=== PATIENT | female | born 1945 | race Caucasian/White ===

== ENCOUNTER → 2020-11-16 13:51 | Outpatient (CLI) | payer MEDICARE, SELFPAY ==
--- NOTE | 2020-11-16 13:57 | DI.MRI.S_ITS ---
PROCEDURE: MR LUMBAR SPINE WO CON INDICATIONS: Wedge compression fracture of unspecified lumbar v TECHNIQUE: Noncontrast sagittal T1 spin echo and T2 fast echo, sagittal STIR, axial T1 and T2 fast spin echo through the lumbar spine. In cases with scoliosis, additional coronal T2 fast spin echo may be performed. COMPARISON: None. FINDINGS: Image quality: Excellent. Alignment and Curvature: There is Grade I retrolithesis of L1 on L2 measuring 4 mm. Bone Marrow: Marrow is of normal overall signal. There is increased marrow signal at L2. There is 82% compression deformity at L1, 53% compression deformity at L2. Spinal Cord: Conus medullaris terminates at the L1-2 level. Visualized cord demonstrates normal signal and size. Paraspinous Soft Tissues: No paravertebral masses. Renal cysts are noted. Severe dessication is present at L4-5, moderate to severe throughout the remainder of the lumbar spine. L1-L2: Mild disc bulge without spinal stenosis. Minimal to mild right foraminal narrowing with facet and ligamentum flavum hypertrophy. L2-L3: Mild disc bulge with mild spinal stenosis. Moderate left and mild to moderate right foraminal narrowing with facet and ligamentum flavum hypertrophy. L3-L4: Mild disc bulge with mild spinal stenosis. Severe left foraminal narrowing with facet and ligamentum flavum hypertrophy. L4-L5: Mild disc bulge without spinal stenosis. Moderate right and mild left foraminal narrowing with facet and ligamentum flavum hypertrophy. L5-S1: Mild disc bulge without spinal stenosis. Minimal bilateral foraminal narrowing with facet and ligamentum flavum hypertrophy. IMPRESSION: 1. Multilevel degenerative changes. 2. Mild spinal stenosis secondary to disc bulge, as well as facet and ligamentum flavum hypertrophy, most notable at L2-3, L3-4. 3. Severe foraminal narrowing L3-4 secondary to facet/ligamentum flavum hypertrophy. 4. Subacute compression deformity at L2. Dictated by: Sonia Shetty M.D. on 11/16/2020 at 15:37 Approved by: Sonia Shetty M.D. on 11/16/2020 at 15:55
== END ==
PROVIDERS: PCP Internal Medicine; Referring Provider Physical Medicine & Rehabilitation Pain Medicine; Visit Provider Physical Medicine & Rehabilitation Pain Medicine
DX: S32.000A Wedge compression fracture of unspecified lumbar vertebra, initial encounter for closed fracture; M47.816 Spondylosis without myelopathy or radiculopathy, lumbar region; M48.061 Spinal stenosis, lumbar region without neurogenic claudication; M51.26 Other intervertebral disc displacement, lumbar region
CPT/HCPCS: 72148

== ENCOUNTER → 2021-01-29 08:06 | Outpatient (CLI) | payer MEDICARE, SELFPAY ==
[2021-01-29 12:00] LABS: COVID19 -Nasal RAPID Negative (Negative)
== END ==
PROVIDERS: PCP Internal Medicine; Referring Provider Physician Assistant; Visit Provider Physician Assistant
DX: Z01.812 Encounter for preprocedural laboratory examination (principal); Z20.822 Contact with and (suspected) exposure to COVID-19
CPT/HCPCS: 87635

== ENCOUNTER 2021-01-30 07:31 | Day surgery (SDC) | payer MEDICARE, SELFPAY ==
--- NOTE | 2021-01-30 | PATH_ITS ---
[facility] Accession Number: [id number] . 01 Material submitted: . PART A: colon - APPENDICIAL ORIFICE POLYP PART B: colon - RANDOM COLON BIOPSIES . 02 Diagnosis: A. Appendiceal Orifice Polyp: Serrated lesion, cannot completely exclude sessile serrated adenoma. . B. Random Colon Biopsies: Portions of colorectal mucosa x 2, one with a benign lymphoid aggregate and with no diagnostic abnormality. Negative for active, chronic, and microscopic colitis. Negative for dysplasia and malignancy. Additional levels through the block are noncontributory. MRV 02/02/2021 1513 Local . 02 Electronically signed: . Lashaun Polo MD, Pathologist NPI- [id number] . 01 Gross description: . A. Received in formalin, labeled appendiceal orifice polyp consists of a 0.4 x 0.3 x 0.2 cm lloyd fragment of soft tissue which is entirely submitted in cassette A1. B. Received in formalin, labeled random colon consists of two lloyd fragments of soft tissue measuring 0.3 x 0.2 x 0.2 cm in aggregate. The specimen is entirely submitted in cassette B1. ([id number]) . /MRV 01/31/2021 1233 Local . 02 Pathologist provided ICD-10: R19.7, D12.6, K63.5 . 02 CPT . 110575, 672334 Performed at: 01 [facility] [address], [place], [place] [id number] MD Pablo Bales MD Phone: [phone] [facility]formed at: [facility] [address] [place], [place] [id number] MD Jossie Milligan MD Phone: [phone]
[2021-01-30 07:56] VITALS: BP 147/87; PULSE 109; RESP 20; TEMP 36.7; O2SAT 100; BMI 30.9
[2021-01-30] MEDS: SODIUM CHLORIDE 0.9% 1,000 ML 84 ML IV (08:18)
--- NOTE | 2021-01-30 08:40 | P.HP_ITS ---
History of Present Illness History of Present Illness Date Patient Seen: 01/30/21 Time Patient Seen: 08:40 Chief complaint: SDC Narrative: I reviewed Dr. Evans note. No changes. Slight improvement with addition of nortriptyline Patient History Medical History C. difficile diarrhea Hypertension Multiple sclerosis Sleep apnea Surgical History H/O: hysterectomy Hx of appendectomy Total knee replacement status Family & Social History Social History: household members spouse Tobacco & Substance use: Smoking Status Never smoker alcohol intake never Substance Use Type marijuana Meds Home Medications and Allergies Home Medications Medication Instructions Recorded Confirmed Type amlodipine 2.5 mg tablet 2.5 mg PO DAILY 01/29/21 01/29/21 History nortriptyline 10 mg capsule 20 mg PO DAILY 01/29/21 01/29/21 History pramipexole 0.125 mg tablet 0.125 mg PO TID 01/29/21 01/29/21 History pyridostigmine bromide 60 mg tablet 60 mg PO TID 01/29/21 01/29/21 History Allergies Allergy/AdvReac Type Severity Reaction Status Date / Time Sulfa (Sulfonamide AdvReac Verified 01/30/21 07:55 Antibiotics) Review of Systems Review of Systems ROS: Yes All systems reviewed with the patient and are negative except as otherwise documented Exam Vital Signs (past 8 hours): - 01/30/21 07:56 Temperature 98.1 F Pulse Rate 109 H Respiratory Rate 20 Blood Pressure 147/87 H Pulse Oximetry 100 Oxygen Delivery Method Room Air Const General: cooperative and comfortable Orientation: alert [facility] Head: normocephalic Ears: external ears normal Nose: external nose normal Face and sinus: normal facial exam Eyes General: appearance normal, both eyes and all related structures Neck Neck: normal visual inspection Chest Chest: normal inspection of the chest Resp Effort & Inspection: normal respiratory effort Cardio Rate: regular rate GI Inspection: normal to inspection Skin General: no rashes or lesions noted and No jaundice Neuro General: patient alert and moves all extremities Cognition: normal cognition Speech: speech normal Extrem General: normal to inspection Psych Appearance: grossly normal Assessment & Plan Assessment & Plan narrative: Personal history of colon polyps. Diarrhea. Slight improvement with the addition of the tricyclic antidepressant colonoscopy is planned for today. Time Spent With Patient Critical Care time: I spent a total of [] minutes of critical care time on this patient's care today; this time is exclusive of procedural time.
--- NOTE | 2021-01-30 08:42 | PM.PREOP ---
Pre-operative Note COVID-19 COVID-19 status: Negative Result date/Date tested (Pos, Neg/Pending): 01/29/21 Interval Note History & Physical reviewed/Exam performed by Physician: Yes Changes to H&P: Yes ASA Class (for procedural sedation): II
--- NOTE | 2021-01-30 08:44 | SUR.OPER ---
GLASSES IN LABELED BAG TO PACU WITH PATIENT.
[2021-01-30 09:15] VITALS: BP 130/82; PULSE 90; RESP 18; TEMP 36.6; O2SAT 99
--- NOTE | 2021-01-30 09:15 | P.OP.COLON_ITS ---
Operative Date/Time/Diagnoses Date of procedure: 01/30/21 Time of procedure: 09:15 Pre-op diagnosis: Personal history of colon polyps. Diarrhea. Post-op diagnosis: same Procedure & Clinicians Study performed: Colonoscopy with biopsies and hot snare polypectomy Same procedure as scheduled: Yes Indications: Personal history of colon polyps. Diarrhea. Surgeon: Jaenmarie Oakes Procedure Notes SCOAP/Timeout: Done Procedure in detail: After the risks and benefits were explained, written and verbal informed consent was obtained. The patient was brought into the procedure room and placed into the left lateral decubitus position. Please see nurse wax machine operator notes for sedation details. Digital rectal examination was accomplished. The scope was introduced into the patient and advanced under direct visualization to the cecum as identified by the appendiceal orifice and ileocecal valve. The scope was slowly withdrawn to carefully examine the mucosa for any defects or lesions. Comprehensive imaging was accomplished throughout the rectum including the dentate line. The colon was decompressed, the scope was then removed from the patient who tolerated the procedure well. Pediatric colonoscope Bowel prep adequate Scope withdrawal time: 17 minutes Sedation minutes: 25 Complications: none Impression: Scattered diverticula were noted throughout the left colon. There were some classic hyperplastic appearing diminutive polyps that were left alone in the rectosigmoid region. The terminal ileum was interrogated and appeared visually normal. There is no evidence of macroscopic colitis. Random colon biopsies were taken for exclusion of microscopic disease. On the rim of the appendiceal orifice there was a sessile polyp that was a little difficult to access with the snare. We removed this piecemeal. Total polyp size was perhaps 8 mm in maximum dimension I noted a tattoo in the ascending colon without any surrounding recurrent polypoid structures. Endoscopic diagnosis 1. Diverticulosis 2. Colon polyp Post-procedure Plan for aftercare: 1. Await histopathology. 2. If adenomatous features are confirmed then because this was removed in piecemeal format early surveillance would be appropriate. Disposition: PACU
[2021-01-30 09:20] VITALS: BP 135/83; PULSE 88; RESP 17; O2SAT 99
--- NOTE | 2021-01-30 09:20 | SUR.PHASEI ---
Patient arrived at 09, however [facility] will not let me enter a time earlier than 916 in phase I
[2021-01-30 09:25] VITALS: BP 138/82; PULSE 102; RESP 21; O2SAT 99
[2021-01-30 09:30] VITALS: BP 144/91; PULSE 92; RESP 14; TEMP 36.6; O2SAT 99
[2021-01-30 09:38] VITALS: BP 147/92; PULSE 90; RESP 14; O2SAT 99
== END 2021-01-30 09:48 | disposition home or self-care (01) ==
PROVIDERS: PCP Internal Medicine; Referring Provider Internal Medicine Gastroenterology; Visit Provider Internal Medicine Gastroenterology
PROC: 0DJD8ZZ Inspection of Lower Intestinal Tract, Via Natural or Artificial Opening Endoscopic (ICD-10-PCS; CPT 45378; principal; 2021-01-30 08:30)
DX: D12.6 Benign neoplasm of colon, unspecified (principal); K57.30 Diverticulosis of large intestine without perforation or abscess without bleeding; Z86.010 Personal history of colon polyps; I10 Essential (primary) hypertension; G35 Multiple sclerosis; G47.30 Sleep apnea, unspecified
CPT/HCPCS: 45385; 45380; J2704

== ENCOUNTER 2022-06-25 14:30 | Outpatient (RCR) | payer MEDICARE, SELFPAY ==
--- NOTE | 2022-06-19 16:59 | ST.OP.ACL ---
Visit Care Team Role Provider Type Marilyn Lemon MD Family Provider Non-Staff Primary Care Provider Specialty: Medical Address: [address] [place] [address], [phone] Email: Adela House MD Attending Provider Non-Staff Referring Provider Specialty: Neurology Address: [address] [place] [address], [id number] Email: Adult Cognitive Linguistic Evaluation LINE MAINTAINER SECTION Adult Cognitive Linguistic Eval Start: 06/19/22 15:46 Freq: Status: Active Protocol: Document 06/19/22 15:46 ZS (Rec: 06/19/22 16:03 ZS [id number]) Adult Cognitive Linguistic Evaluation Session Time Visit Start Time 13:45 Visit Stop Time 14:20 Total Visit Minutes 35 Visit Information Visit Number Initial Evaluation Plan of Care Dates 06/19/2022 - 09/13/2022 Insurance Information Medicare Referral Referring Provider Dr. House Reason for Referral MS and worsening memory issues Setting Assessment Location Outpatient Care Visit Type Note Type Initial evaluation Next Note Type Next Note Type Treatment Note Patient Information Identification Type Name Patient History Yessenia is a 77-year-old female with a diagnosis of MS, which she received 25-30 years ago. Memory challenges started about 20 years ago and have worsened recently, particularly as it relates to remembering appointment days/ times, money management (e.g., counting change), and her mind going blank. 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 Son reported Yessenia will become frustrated when she loses a thought and that she cannot be interrupted mid- thought otherwise she will forget what she was saying. Yessenia described that her mind will just go blank and there is nothing she can do to get it back. She stated this has been the scariest part of MS for her. Language(s) Spoken in the Home [place] Education Level high school Occupation Status unemployed Hearing Hearing Level Normal Vision Vision Status Not Impaired Previous Therapy Previous Speech-Language Therapy No Subjective Patient Report Yessenia arrived on time accompanied by her son, who was present for the session. Mental Status Alert,Responsive,Cooperative Assessment Oral Motor Examination Completed No Formal Assessment Standardized Test/Screener Type Cognitive Linguistic Quick Test (CLQT) Administration Complete Results Results of the CLQT place Yessenia's attention, executive functions, visuospatial, and clock drawing skills WNL and her memory and language skills as mildly impaired. She missed points on her current address, though son reported she had moved about a month prior. Pt reviewed written directions while completing clock drawing task and completed this task mostly correctly, with the exception of mixing up the long and short hand on the clock. She predicted poor performance on story retell and exhibited difficulty recalling details, though main points of the story were accurately recalled . Difficulty noted with symbol trails task, as pt did not alternate shapes consistently and missed shapes while completing task. She identified initial error, attempted to correct and then got confused. LINE MAINTAINER SECTION provided a different colored pen and Yessenia completed task with new color to reduce confusion with prior lines. Errors still present with new color, though errors made changed with each attempt. Yessenia started with several words on generative naming task and then stated her mind went blank after about 30 seconds for each task . Similar difficulty noted with design generation task, with her mind going blank mid-drawing of a shape. Attempted removing task from sight and discussing something else, which Yessenia reported would not help. High level of success noted for design generation, with one error noted on final trial. Difficulty observed on second maze task with line moving through final wall as well as several instances of line curving into end area as she rounded corners. Recommend speech therapy to provide external strategies for improved memory, especially as it relates to medication management and medical care (e .g., tracking appointments). Prognosis Based on Cognitive status,Comorbidities ,Duration of symptoms/severity ,Time since onset Plan of Care Speech-Language Treatment Yes Frequency 1x per week Duration 45 minutes Patient/Caregiver Education Patient expressed understanding of evaluation, Patient expressed agreement with goals and treatment plans ,Family/caregivers expressed understanding of evaluation, Family/caregivers expressed agreement with goals and treatment plan,Patient requires further education/ training,Family/caregivers require further education/ training Short Term Goals 1. Yessenia will use external memory strategies (e.g., calendar, timers, etc.) to improve recall of appointments and daily activities given printed resources and verbal reminders. 2. Family and pt will participate in education regarding strategies for memory as MS progresses. Longterm Goals Yessenia will demonstrate use of external memory strategies (e. g., calendar, timers, etc.) across 2-3 environments to improve completion of ADLs, as reported by pt and caregivers and observed by LINE MAINTAINER SECTION.
--- NOTE | 2022-06-19 16:59 | ST.OPPOC ---
Physical, Occupational & Speech Therapy At [facility] Visit Care Team Role Provider Type Marilyn Lemon MD Family Provider Non-Staff Primary Care Provider Address: [address] [place] [address], [phone] Adela House MD Attending Provider Non-Staff Referring Provider Address: [address] [place] [address], [phone] Speech Pathology Plan of Care Plan of Care Dates 06/19/2022 - 09/13/[address] House Patient History eYssenia is a 77-year-old female with a diagnosis of MS, which she received 25-30 years ago. Memory challenges started about 20 years ago and have worsened recently, particularly as it relates to remembering appointment days/times, money management (e.g., counting change), and her mind going blank. 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 Son reported Yessenia will become frustrated when she loses a thought and that she cannot be interrupted mid- thought otherwise she will forget what she was saying. Yessenia described that her mind will just go blank and there is nothing she can do to get it back. She stated this has been the scariest part of MS for her. Short Term Goals 1. Yessenia will use external memory strategies (e. g., calendar, timers, etc.) to improve recall of appointments and daily activities given printed resources and verbal reminders. 2. Family and pt will participate in education regarding strategies for memory as MS progresses . Transitional Care Manager Goals Yessenia will demonstrate use of external memory strategies (e.g., calendar, timers, etc.) across 2-3 environments to improve completion of ADLs, as reported by pt and caregivers and observed by RETAIL WORKER. Comment: Electronically Signed by: IFEANYI Martinez 06/19/22 8026 If you are in agreement with this Plan of Care, please return a signed and dated copy. I have reviewed this Plan of Care and certify that the skilled therapy services above are required to meet the patient?s needs. Physician Signature Date Printed Name and Credentials Clinical Instructor Signature Printed Name and Credentials
--- NOTE | 2022-06-25 16:24 | ST.OPTN ---
Visit Care Team Role Provider Type Marilyn Lemon MD Family Provider Non-Staff Primary Care Provider Address: [address] [place] [address], [phone] Adela House MD Attending Provider Non-Staff Referring Provider Address: [place], [address] CHIP PERSON Treatment Note CHIP PERSON Treatment Note Start: 06/25/22 15:23 Freq: Status: Active Protocol: Document 06/25/22 15:23 ZS (Rec: 06/25/22 15:30 ZS [id number]) Speech Pathology Treatment Note Session Time Visit Start Time 14:30 Visit Stop Time 15:15 Total Visit Minutes 45 Visit Information Visit Number 1 Plan of Care Dates 06/19/2022 - 09/13/2022 Insurance Information Medicare Setting Treatment Setting Outpatient Care Visit Type Note Type Treatment Note Next Note Type Next Note Type Treatment Note General Information Patient History Yessenia is a 77-year-old female with a diagnosis of MS, which she received 25-30 years ago. Memory challenges started about 20 years ago and have worsened recently, particularly as it relates to remembering appointment days/ times, money management (e.g., counting change), and her mind going blank. 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 Son reported Yessenia will become frustrated when she loses a thought and that she cannot be interrupted mid- thought otherwise she will forget what she was saying. Yessenia described that her mind will just go blank and there is nothing she can do to get it back. She stated this has been the scariest part of MS for her. Results of the CLQT place Yessenia's attention, executive functions, visuospatial, and clock drawing skills WNL and her memory and language skills as mildly impaired. She missed points on her current address, though son reported she had moved about a month prior. Pt reviewed written directions while completing clock drawing task and completed this task mostly correctly, with the exception of mixing up the long and short hand on the clock. She predicted poor performance on story retell and exhibited difficulty recalling details, though main points of the story were accurately recalled . Difficulty noted with symbol trails task, as pt did not alternate shapes consistently and missed shapes while completing task. She identified initial error, attempted to correct and then got confused. CHIP PERSON provided a different colored pen and Yessenia completed task with new color to reduce confusion with prior lines. Errors still present with new color, though errors made changed with each attempt. Yessenia started with several words on generative naming task and then stated her mind went blank after about 30 seconds for each task . Similar difficulty noted with design generation task, with her mind going blank mid-drawing of a shape. Attempted removing task from sight and discussing something else, which Yessenia reported would not help. High level of success noted for design generation, with one error noted on final trial. Difficulty observed on second maze task with line moving through final wall as well as several instances of line curving into end area as she rounded corners. Recommend speech therapy to provide external strategies for improved memory, especially as it relates to medication management and medical care (e .g., tracking appointments). Subjective Identification Type Name Identification Reconciled With Medical Record Others Present Family Observations/Patient Presentation Yessenia arrived on time accompanied by her son, who was present for the session. Chief Complaint(s) Cognitive Objective Short Term Goals 1. Yessenia will use external memory strategies (e.g., calendar, timers, etc.) to improve recall of appointments and daily activities given printed resources and verbal reminders. 2. Family and pt will participate in education regarding strategies for memory as MS progresses. Mud Grinder Goals Yessenia will demonstrate use of external memory strategies (e. g., calendar, timers, etc.) across 2-3 environments to improve completion of ADLs, as reported by pt and caregivers and observed by CHIP PERSON. Treatment Activities Reviewed results of CLQT and provided education regarding cognitive domains. Discussed external strategies: calendar, memory notebook, alarms and implementation of routines now given progressive diagnosis. Discussed stress management techniques and having more kelvin/patience with self in moments of forgetfulness. Assessment Assessment of Improvement Yessenia reported frustration with calling the wrong person on the phone, though son reminded her this occurred while she was on several pain medications and is not a recurring problem. Discussed use of calendar for recalling appointment times/dates/ locations. Yessenia reported she has a large wall calendar that is placed in a central location at home with color- coding to differentiate between individuals' schedules . She added she has a pocket/ purse case planner though sometimes forgets to compare the two. Yessenia stated she often does not put enough information on the calendar and does not know what the appointment is for or where it is. Discussed putting type of appointment, location, time, phone number, and notes on calendar to reduce confusion. Yessenia expressed agreement and understanding. Discussed increased patience and kelvin with herself to reduce stress around memory errors, as son mentioned this can worsen memory. Reviewed with Patient Goals,Progress Being Made,Home Exercise Program Patient/Caregiver Understanding Excellent Plan Amount of Therapy Recommended 4 Months Frequency of Treatment Once a Week Length of Session 45 Minutes Therapeutic Contents Cognitive-Linguistic Training, Home Exercise Program Provided Patient/Caregiver Instruction Home Exercise Program,Plan of Care,Questions/Concerns Therapy Recommendations Continue with Current Program
--- NOTE | 2022-08-05 15:24 | ST.OPDS ---
Visit Care Team Role Provider Type Marilyn Lemon MD Family Provider Non-Staff Primary Care Provider Address: [address] [place] [address], [id number] Adela House MD Attending Provider Non-Staff Referring Provider Address: [place], [address] [employer]ARM [employer]ODUCT [employer]CH[employer]ER Treatment Note FARM [employer]ODUCT PURCH[employer]ER Treatment Note Start: 06/25/22 15:23 Freq: Status: Active Protocol: Document 08/05/22 15:22 ZS (Rec: 08/05/22 15:24 ZS [id number]) Speech Pathology Treatment Note Visit Information Plan of Care Dates 06/19/2022 - 09/13/2022 Insurance Information Medicare Setting Treatment Setting Outpatient Care Visit Type Note Type Discharge Summary General Information Patient History Yessenia is a 77-year-old female with a diagnosis of MS, which she received 25-30 years ago. Memory challenges started about 20 years ago and have worsened recently, particularly as it relates to remembering appointment days/ times, money management (e.g., counting change), and her mind going blank. 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 Son reported Yessenia will become frustrated when she loses a thought and that she cannot be interrupted mid- thought otherwise she will forget what she was saying. Yessenia described that her mind will just go blank and there is nothing she can do to get it back. She stated this has been the scariest part of MS for her. Results of the CLQT place Yessenia's attention, executive functions, visuospatial, and clock drawing skills WNL and her memory and language skills as mildly impaired. She missed points on her current address, though son reported she had moved about a month prior. Pt reviewed written directions while completing clock drawing task and completed this task mostly correctly, with the exception of mixing up the long and short hand on the clock. She predicted poor performance on story retell and exhibited difficulty recalling details, though main points of the story were accurately recalled . Difficulty noted with symbol trails task, as pt did not alternate shapes consistently and missed shapes while completing task. She identified initial error, attempted to correct and then got confused. FARM PRODUCT PURCHASER provided a different colored pen and Yessenia completed task with new color to reduce confusion with prior lines. Errors still present with new color, though errors made changed with each attempt. Yessenia started with several words on generative naming task and then stated her mind went blank after about 30 seconds for each task . Similar difficulty noted with design generation task, with her mind going blank mid-drawing of a shape. Attempted removing task from sight and discussing something else, which Yessenia reported would not help. High level of success noted for design generation, with one error noted on final trial. Difficulty observed on second maze task with line moving through final wall as well as several instances of line curving into end area as she rounded corners. Recommend speech therapy to provide external strategies for improved memory, especially as it relates to medication management and medical care (e .g., tracking appointments). Objective Short Term Goals 1. Yessenia will use external memory strategies (e.g., calendar, timers, etc.) to improve recall of appointments and daily activities given printed resources and verbal reminders. 2. Family and pt will participate in education regarding strategies for memory as MS progresses. Division Operations Specialist Goals Yessenia will demonstrate use of external memory strategies (e. g., calendar, timers, etc.) across 2-3 environments to improve completion of ADLs, as reported by pt and caregivers and observed by FARM PRODUCT PURCHASER. Treatment Activities Discharging from speech therapy as does not have staff to accommodate pt on caseload at this time. Pt will be placed on a wait list and contacted when has staff to accommodate pt on schedule. Plan Provided Patient/Caregiver Instruction Plan of Care,Questions/ Concerns Therapy Recommendations Discharge from Speech Therapy Reason for Discharge does not have staff to accommodate pt on schedule.
== END 2022-08-09 15:04 ==
LOC: SP 14:30
PROVIDERS: Family Provider Internal Medicine; PCP Internal Medicine; Referring Provider Psychiatry & Neurology Neurology; Visit Provider Psychiatry & Neurology Neurology
DX: R41.3 Other amnesia (principal); G35 Multiple sclerosis
CPT/HCPCS: 96125; 97129; 97130

== ENCOUNTER 2022-09-18 07:48 | Day surgery (SDC) | payer MEDICARE, SELFPAY ==
--- NOTE | 2022-09-18 | PATH_ITS ---
[facility] Accession Number: [id number] No. of containers..01 Tissue . 01 Material submitted: . colon - APPENDICELE ORRIFICE POLYP . 01 Diagnosis: Appendiceal Orifice, Polypectomy: Sessile serrated adenoma. MRV 09/24/2022 1809 Local . 01 Electronically signed: . Jossie Milligan MD, Pathologist NPI- [id number] . 01 Gross description: . The specimen is received in formalin labeled with the patient's name, , and appendiceal orifice polyp, and consists of multiple lloyd soft tissue fragments aggregating to 0.6 x 0.4 x 0.1 cm. The specimen is filtered and submitted entirely in cassette A1. ([id number]) /FRR 09/21/2022 1410 Local . 01 Pathologist provided ICD-10: D12.1 . 01 CPT . 346530 Specimen Comment: A courtesy copy of this report has been sent to [phone] Performed at: [address] [facility] [address] [place] [address], [place], [place] [id number] MD Pablo Bales MD Phone: [phone]
[2022-09-18] MEDS: LACTATED RINGERS 1,000 ML 42 ML IV (08:04)
--- NOTE | 2022-09-18 08:13 | PM.HP.1 ---
History of Present Illness History of Present Illness Date Patient Seen: 09/18/22 Time Patient Seen: 08:13 Chief complaint: Colonoscopy Narrative: Since chatting in clinic, bowels have normalized. She is here for polyp surveillance. [facility] Medical History C. difficile diarrhea Hypertension Multiple sclerosis Sleep apnea Surgical History H/O: hysterectomy Hx of appendectomy Total knee replacement status Social History household members: spouse Smoking Status: Never smoker alcohol intake: never Meds Home Medications and Allergies Home Medications Medication Instructions Recorded Confirmed Type amlodipine 2.5 mg tablet 2.5 mg PO DAILY 01/29/21 01/29/21 History nortriptyline 10 mg capsule 20 mg PO DAILY 01/29/21 01/29/21 History pramipexole 0.125 mg tablet 0.125 mg PO TID 01/29/21 01/29/21 History pyridostigmine bromide 60 mg tablet 60 mg PO TID 01/29/21 01/29/21 History Allergies Allergy/AdvReac Type Severity Reaction Status Date / Time Sulfa (Sulfonamide AdvReac Verified 09/18/22 08:09 Antibiotics) Review of Systems Review of Systems ROS: Yes All systems reviewed with the patient and are negative except as otherwise documented Exam Const General: cooperative HENMT Head: normal to inspection Eyes General: appearance normal, both eyes and all related structures Neck Neck: normal visual inspection Chest Chest: normal inspection of the chest Resp Effort & Inspection: normal respiratory effort Cardio Rate: regular rate GI Inspection: normal to inspection Skin General: no rashes or lesions noted Neuro General: patient alert and patient awake Extrem General: normal to inspection and no pedal edema Psych Appearance: grossly normal Assessment & Plan Assessment & Plan narrative: 77-year-old female with an adenomatous colon polyp removed from the region of the appendiceal orifice. She is overdue for surveillance. Colonoscopy is pursued today.
--- NOTE | 2022-09-18 08:15 | PM.PREOP ---
Pre-operative Note Interval Note History & Physical reviewed/Exam performed by Physician: Yes Changes to H&P: No ASA Class (for procedural sedation): II
[2022-09-18 08:17] VITALS: BP 138/88; PULSE 104; RESP 18; TEMP 37; O2SAT 95; BMI 30.1
--- NOTE | 2022-09-18 09:14 | P.OP.COLON_ITS ---
Operative Date/Time/Diagnoses Date of procedure: 09/18/22 Time of procedure: 09:14 Pre-op diagnosis: Appendiceal orifice adenoma Post-op diagnosis: same Procedure & Clinicians Study performed: Colonoscopy with cold snare cold biopsy polypectomy Same procedure as scheduled: Yes Indications: Appendiceal orifice adenoma Surgeon: Jeanmarie Oakes Procedure Notes SCOAP/Timeout: Done Procedure in detail: After the risks and benefits were explained, written and verbal informed consent was obtained. The patient was brought into the procedure room and placed into the left lateral decubitus position. Please see anesthesia notes for sedation details. Digital rectal examination was accomplished. The scope was introduced into the patient and advanced under direct visualization to the cecum as identified by the appendiceal orifice and ileocecal valve. The scope was slowly withdrawn to carefully examine the mucosa for any defects or lesions. Comprehensive imaging was accomplished throughout the rectum including the d entate line. The colon was decompressed, the scope was then removed from the patient who tolerated the procedure well. Pediatric colonoscope Bowel prep adequate Scope withdrawal time: 16 minutes Sedation minutes: 26 Complications: none Impression: Patient had grade 1 to grade 2 internal hemorrhoids. Diverticulosis was encountered in the sigmoid. On initial inspection of the appendiceal orifice I did not see any obvious polyp but then was concerned about an approximately 7 mm subtle area within the orifice that could have represented residual polyps so this was attempted to be removed with hot snare. Ultimately the snare came through before any cautery was applied. There was no significant bleeding. Two other locations immediately adjacent the snared section were trimmed off with cold forceps. No additional significant pathology was appreciated throughout. Endoscopic diagnosis 1. Diverticulosis 2. Grade 2 hemorrhoids 3. Possible residual appendiceal orifice polyp Post-procedure Plan for aftercare: Await histology to determine an appropriate surveillance interval. Disposition: PACU
[2022-09-18 09:17] VITALS: BP 87/47; PULSE 93; RESP 12; TEMP 36.1; O2SAT 95
[2022-09-18 09:22] VITALS: BP 90/51; PULSE 95; RESP 11; O2SAT 97
[2022-09-18 09:27] VITALS: BP 116/78; PULSE 94; RESP 19; TEMP 36.4; O2SAT 97
[2022-09-18 09:28] VITALS: BP 118/78; PULSE 94; RESP 20; O2SAT 96
== END 2022-09-18 09:52 | disposition home or self-care (01) ==
PROVIDERS: Family Provider Internal Medicine; PCP Internal Medicine; Referring Provider Internal Medicine Gastroenterology; Visit Provider Internal Medicine Gastroenterology
PROC: 0DJD8ZZ Inspection of Lower Intestinal Tract, Via Natural or Artificial Opening Endoscopic (ICD-10-PCS; CPT 45378; principal; 2022-09-18 09:00)
DX: Z12.11 Encounter for screening for malignant neoplasm of colon (principal); Z86.010 Personal history of colon polyps; K57.30 Diverticulosis of large intestine without perforation or abscess without bleeding; K64.1 Second degree hemorrhoids; D12.1 Benign neoplasm of appendix
CPT/HCPCS: 45385; 45380; J2704

== ENCOUNTER 2023-02-24 07:32 | Day surgery (SDC) | payer MEDICARE, SELFPAY ==
[2023-02-24] VITALS (7 sets, daily range): BP systolic 95–141; BP diastolic 50–76; PULSE 61–83; RESP 12–26; TEMP 36.4; O2SAT 94–97
--- NOTE | 2023-02-24 | PATH_ITS ---
[facility] Accession Number: [id number] No. of containers..01 Tissue . 01 Material submitted: . sigmoid colon - SIGMOID . 01 Diagnosis: Sigmoid Colon, Biopsy: Hyperplastic polyp. [facility] 03/05/2023 1101 Local . 01 Electronically signed: . Vinod Dinh MD, PhD, Pathologist NPI- [id number] . 01 Gross description: . SIGMOID: Received in formalin is 1 fragment(s) of lloyd, soft tissue measuring 0.3 x 0.1 x 0.1 cm submitted entirely in 1 cassette(s) /AAY 02/25/2023 0532 Local . 01 Pathologist provided ICD-10: K63.5 . 01 CPT . 676263 Specimen Comment: A courtesy copy of this report has been sent to [phone] Performed at: 01 [facility] [address] [place] [address], [place], [place] [id number] MD Pablo Bales MD Phone: [phone]
[2023-02-24] MEDS: LACTATED RINGERS 1,000 ML 42 ML IV (08:35)
--- NOTE | 2023-02-24 08:56 | PM.HP.1 ---
History of Present Illness History of Present Illness Date Patient Seen: 02/24/23 Chief complaint: Colonoscopy Narrative: Surveillance colonoscopy for previous history of sessile serrated adenoma at the appendiceal orifice [facility] Medical History C. difficile diarrhea Hypertension Multiple sclerosis Sleep apnea Surgical History H/O: hysterectomy Hx of appendectomy Total knee replacement status Social History household members: spouse Smoking Status: Former smoker alcohol intake: never Meds Home Medications and Allergies Home Medications Medication Instructions Recorded Confirmed Type pyridostigmine bromide 60 mg 60 mg PO TID 01/29/21 02/24/23 History tablet (Mestinon) sumatriptan 50 mg tablet and 1 ea PO DAILY PRN Migraine Headache 09/18/22 02/24/23 History menthol 10 %-camphor 4 % topical gel citalopram 20 mg tablet 20 mg PO DAILY 02/24/23 02/24/23 History gabapentin 300 mg capsule 300 mg PO DAILY 02/24/23 02/24/23 History ginkgo biloba 40 mg tablet 40 mg PO DAILY 02/24/23 02/24/23 History glucosamine sulfate 500 mg tablet 500 mg PO DAILY 02/24/23 02/24/23 History (Glucosamine) magnesium chloride 64 mg 64 mg PO BEDTIME 02/24/23 02/24/23 History (magnesium chloride) tablet,delayed release memantine 10 mg tablet (Namenda) 10 mg PO BID 02/24/23 02/24/23 History omega 0-rqy-dwk-fish oil 60 mg-90 1 cap PO DAILY 02/24/23 02/24/23 History mg-500 mg capsule (Fish Oil) Allergies Allergy/AdvReac Type Severity Reaction Status Date / Time Sulfa (Sulfonamide AdvReac Verified 02/24/23 08:08 Antibiotics) Exam Vital Signs (past 8 hours): - 02/24/23 08:28 Temperature 97.5 F L Pulse Rate 83 Respiratory Rate 19 Blood Pressure 133/76 Pulse Oximetry 95 Oxygen Delivery Method Room Air Oxygen Delivery Method Room Air Narrative Exam Narrative: Oropharynx free of lesions Chest clear to auscultation percussion Cardiac exam reveals no S3 or murmur Assessment & Plan Assessment & Plan narrative: History of adenomatous colon polyps need for follow-up colonoscopy. Risks, benefits, alternatives have been explained.
--- NOTE | 2023-02-24 08:57 | PM.OP.COLON ---
Operative Date/Time/Diagnoses Date of procedure: 02/24/23 Pre-op diagnosis: See indication and findings Procedure & Clinicians Study performed: Colonoscopy Indications: History of adenomatous polyp at the appendiceal orifice Surgeon: Davon Evans Procedure Notes Procedure in detail: After informed consent was obtained the patient was placed in left lateral decubitus position. The video colonoscope was placed in the rectum slowly advanced cecum. Preparation was good. On slow withdrawal mucosa was carefully examined. The scope was removed. The patient tolerated procedure well. Blood loss none Complications none Sedation mac Findings 1. Completely normal appendiceal orifice. Photographs taken 2. Two sites of previous tattoo in mid ascending colon Clear polyp 3. 3 mm polyp in the sigmoid colon Jumbo biopsy removed completely 4. Myad-sg-acpmacoi sigmoid diverticulosis 5. Otherwise negative colonoscopy to cecum Yessenia should have follow-up colonoscopy in 3-5 years
== END 2023-02-24 10:06 | disposition home or self-care (01) ==
PROVIDERS: Family Provider Internal Medicine; PCP Internal Medicine; Referring Provider Internal Medicine Gastroenterology; Visit Provider Internal Medicine Gastroenterology
PROC: 0DJD8ZZ Inspection of Lower Intestinal Tract, Via Natural or Artificial Opening Endoscopic (ICD-10-PCS; CPT 45378; principal; 2023-02-24 09:00)
DX: Z12.11 Encounter for screening for malignant neoplasm of colon (principal); Z86.010 Personal history of colon polyps; K57.30 Diverticulosis of large intestine without perforation or abscess without bleeding; K63.5 Polyp of colon
CPT/HCPCS: 45380

== ENCOUNTER → 2024-08-14 15:17 | Outpatient (CLI) | payer MEDICARE, SELFPAY ==
--- NOTE | 2024-08-14 15:19 | DI.MRI.S_ITS ---
PROCEDURE: MR CERVICAL SPINE WO CON INDICATIONS: imbalance, spinal stenosis TECHNIQUE: Noncontrast sagittal T1 spin echo and T2 fast spin echo, sagittal STIR, foraminal oblique sagittal T2 fast spin echo, and axial gradient echo or T2 fast spin echo through the cervical spine. COMPARISON: [facility] Outside Film, CT, CT CERVICAL SPINE WITHOUT CONTRAST, 05/27/2022, 16:45. FINDINGS: Image quality: Diagnostic, with note made of motion artifact. Alignment and Curvature: There is overall straightening of the normal cervical lordosis. No focal AP alignment abnormality is seen. Bone Marrow: Marrow demonstrates normal overall signal. Spinal Cord: Visualized spinal cord has normal size and signal. No cerebellar tonsillar herniation. Paraspinous Soft Tissues: No paravertebral masses. Prevertebral soft tissues are normal in thickness. C2-C3: No significant abnormality is seen. C3-C4: Mild loss of disc height is seen. Loss of disc signal is seen. Bridging endplate osteophytes are seen. Moderate generalized disc osteophyte complex is seen. There is a superimposed central disc osteophyte protrusion. Uncovertebral joint hypertrophy is seen at this level. Mild facet joint hypertrophy is seen. There is at least moderate bilateral neural foraminal narrowing seen. Moderate central canal narrowing is seen. There is associated mass effect upon the ventral spinal cord. C4-C5: Moderate loss of disc height is seen. Loss of disc signal is seen. Reactive marrow endplate changes are seen, which are hyperintense on T1-weighted and T2-weighted imaging and most consistent with fatty metaplasia (Modic type II changes). Moderate disc osteophyte complex is seen, with a central/right disc osteophyte protrusion. Uncovertebral joint hypertrophy is seen at this level. Mild facet joint hypertrophy is seen. There is moderate to severe right-sided and at least moderate left-sided neural foraminal narrowing. Moderate central canal narrowing is seen. There is associated mass effect upon the ventral spinal cord. C5-C6: Phds-jv-tbxlmwif loss of disc height and disc signal can be seen. At least moderate disc osteophyte complex is seen. There is a central/right disc osteophyte protrusion. Uncovertebral joint hypertrophy is seen at this level. There is at least moderate bilateral neural foraminal narrowing, right worse than left. Moderate central canal narrowing is seen. There is associated mass effect upon the ventral spinal cord. C6-C7: Mild to moderate loss of disc height is seen. Loss of disc signal is seen. Moderate generalized disc osteophyte complex is seen. There is a superimposed central disc osteophyte protrusion. Mild facet joint hypertrophy is seen. Moderate to severe bilateral neural foraminal narrowing can be seen. Moderate central canal narrowing is seen. There is associated mass effect upon the ventral spinal cord. C7-T1: The disc height is well-preserved. Loss of disc signal is seen at this level. A mild degree of generalized disc osteophyte complex is seen. Mild facet joint hypertrophy is seen. There is moderate left-sided and no right-sided neural foraminal narrowing. No central canal narrowing is seen. IMPRESSION: Multiple levels of significant cervical spine degenerative change can be seen. Dictated by: Mc Rai M.D. on 08/16/2024 at 12:10 Approved by: Mc Rai M.D. on 08/16/2024 at 12:14
== END ==
PROVIDERS: Family Provider Internal Medicine; Referring Provider Registered Nurse; Visit Provider Registered Nurse
DX: M48.02 Spinal stenosis, cervical region (principal); M48.03 Spinal stenosis, cervicothoracic region; M50.21 Other cervical disc displacement, high cervical region; M47.813 Spondylosis without myelopathy or radiculopathy, cervicothoracic region; M47.812 Spondylosis without myelopathy or radiculopathy, cervical region; M25.78 Osteophyte, vertebrae; R26.89 Other abnormalities of gait and mobility; G35 Multiple sclerosis; G25.0 Essential tremor; R42 Dizziness and giddiness
CPT/HCPCS: 72141

== ENCOUNTER → 2025-01-07 08:23 | Outpatient (CLI) | payer MEDICARE, SELFPAY ==
--- NOTE | 2025-01-07 08:27 | DI.CT.S_ITS ---
PROCEDURE: CT ANGIO ABDOMEN PELVIS INDICATIONS: AAA TECHNIQUE: After the administration of intravenous contrast, 2.5 mm thick sections acquired from the diaphragm to the symphysis. 10 mm maximum-intensity projection (MIP) reformats were then acquired. For radiation dose reduction, the following was used: automated exposure control. COMPARISON: None. FINDINGS: Image Quality: Diagnostic. Abdominal aorta: Saccular infrarenal abdominal aortic aneurysm off the anterior wall, with aneurysm sac measuring 2.3 x 1.3 x 2.2 cm (, ). The maximal diameter of the aorta at this level measures 3.0 cm. No prior exams are available for comparison at this time. Mesenteric arteries: Patent without hemodynamically significant stenosis. Renal arteries: Patent without hemodynamically significant stenosis. OTHER: Lower Chest: No significant findings. Liver: No solid mass. Gallbladder: No radiopaque gallstones or wall thickening. Biliary ducts: No biliary dilation. Pancreas: No ductal dilation. Spleen: Size is within normal limits. Adrenal Glands: No adrenal nodules. Kidneys and Ureters: No hydronephrosis. No solid mass. No complex renal cystic lesion which requires follow up. Stomach and Bowel: Normal colonic caliber, without significant wall thickening. Peritoneum: No abnormal intraperitoneal fluid. No free air. Ventral Wall: No hernia. Abdominal Nodes: No retroperitoneal or mesenteric adenopathy by size criteria. Vessels: Aorta and inferior vena cava are normal in size. PELVIS: Pelvic Organs: Status post hysterectomy. Bladder: Unremarkable. Pelvic Nodes: No enlarged lymph nodes. Miscellaneous: No inguinal hernias are seen. Pelvic nerve stimulators present with battery pack in the right lower back soft tissues. Bones: No aggressive osseous abnormality. Multilevel degenerative changes of the visualized spine with mild to moderate chronic appearing compression deformities involving the L1 through L3 vertebral bodies. IMPRESSION: Saccular infrarenal abdominal aortic aneurysm, with aneurysm sac measuring 2.3 x 1.3 x 2.2 cm. No prior exams are available for comparison at this time. Dictated by: Sandeep Sykes M.D. on 01/09/2025 at 14:11 Approved by: Sandeep Sykes M.D. on 01/09/2025 at 14:15
[2025-01-07 08:50] LABS: Estimated Glomerular Filt Rate > 60 mL/min (>60)
== END ==
LOC: CT 08:26
PROVIDERS: Family Provider Internal Medicine; PCP Nurse Practitioner Acute Care; Referring Provider Student in an Organized Health Care Education/Training Program; Visit Provider Student in an Organized Health Care Education/Training Program
DX: I71.40 Abdominal aortic aneurysm, without rupture, unspecified (principal); Z90.710 Acquired absence of both cervix and uterus
CPT/HCPCS: 36415; 74174; 82565; Q9967